=== PATIENT | female | born 1965 | race Caucasian/White ===

== ENCOUNTER 2019-03-15 13:03 | Emergency (ER) | payer OTHER ==
--- NOTE | 2019-03-15 13:10 | EDM.PDOC ---
ED HPI GENERAL MEDICAL PROBLEM - General Stated Complaint: MEDICAL ISSUES Time Seen by Provider: 03/15/19 13:05 Source of Information: Reports: Patient, Family History Limitations: Reports: Altered Mental Status - History of Present Illness INITIAL COMMENTS - FREE TEXT/NARRATIVE: 53-year-old female, with severe fibromyalgia has been "sleeping" for the past 3 days but seemed better this morning. She got up and made her own breakfast but then laid down for a nap. She was wearing her CPAP, and when she woke she seemed agitated and threw her mask off. She is confused, her awareness seems to be waxing and waning and she is dysarthric. She has not had this problem in the past. No fevers or chills, no recent illness, no nausea or vomiting. There is concern she accidently took a nighttime dose of amitriptyline this morning. Onset: Sudden (Symptoms started fairly suddenly in the last two hours) Associated Symptoms: Reports: Confusion, Weakness, Other (Significant fatigue over the past several days). Denies: Fever/Chills, Headaches, Nausea/Vomiting - Related Data Allergies Allergy/AdvReac Type Severity Reaction Status Date / Time No Known Allergies Allergy Verified 03/15/19 13:12 Home Meds: Home Meds Amitriptyline HCl 150 mg PO BEDTIME 03/15/19 [History] Amitriptyline [Elavil] 25 mg PO ASDIRECTED PRN 03/15/19 [History] Cholecalciferol (Vitamin D3) [Vitamin D] 1 tab PO DAILY 03/15/19 [History] Lisinopril 10 mg PO DAILY 03/15/19 [History] Venlafaxine HCl [Venlafaxine HCl ER] 37.5 mg PO DAILY 03/15/19 [History] ED ROS GENERAL - Review of Systems Review Of Systems: See Below Constitutional: Reports: Malaise, Weakness, Decreased Appetite. Denies: Fever, Chills HEENT: Reports: Other (Dysarthria) Respiratory: Denies: Shortness of Breath Cardiovascular: Denies: Chest Pain GI/Abdominal: Denies: Diarrhea, Nausea, Vomiting : Reports: No Symptoms Musculoskeletal: Reports: Other (Severe recent flareup of fibromyalgia) Skin: Reports: Other (Irregular erythematous macular rash on the left shoulder and a few patches on the left cheek and neck which the family had not noticed earlier) Neurological: Reports: Other (Symmetric generalized weakness, shaky and very tremulous when attempting to stand) Psychiatric: Reports: Depression, Other (History of chemical dependency treatment) ED EXAM, GENERAL - Physical Exam Exam: See Below Exam Limited By: Altered Mental Status General Appearance: Alert, Other (Acting very tired, responds appropriately to questions with slurred speech and tends to close eyes in between questioning) Eye Exam: Bilateral Eye: EOMI Throat/Mouth: Other (Lips are dry, otherwise negative) Head: Atraumatic Neck: Supple Respiratory/Chest: No Respiratory Distress, Lungs Clear Cardiovascular: Regular Rate, Rhythm GI/Abdominal: Tender (Does react with some diffuse discomfort to palpation in the abdomen, no focal tenderness) Neurological: Inattentive, Confused, Slow to Respond. No: Sensory/Motor Deficit (No asymmetric deficit) Psychiatric: Depressed Mood, Flat Affect Skin Exam: Warm, Erythema (An asymmetric macular rash on the left shoulder and a few patches on the neck and cheek left side) Course - Vital Signs Last Recorded V/S: Last Vital Signs Temp 96.0 F 03/15/19 13:10 Pulse 100 03/15/19 14:05 Resp 15 03/15/19 15:49 BP 125/84 03/15/19 15:49 Pulse Ox 97 03/15/19 14:05 - Orders/Labs/Meds Orders: Active Orders 24 hr Category Date Time Status Insert Armas Catheter [Insert Urinary Catheter] [OM.PC] Care 03/15/19 13:45 Ordered Q24H Urinary Catheter Assessment [RC] ASDIRECTED Care 03/15/19 13:33 Active Labs: Laboratory Tests 03/15/19 03/15/19 03/15/19 Range/Units 13:47 13:47 13:54 WBC 7.6 (4.5-11.0) K/uL RBC 3.66 (3.30-5.50) M/uL Hgb 11.1 L (12.0-15.0) g/dL Hct 35.6 L (36.0-48.0) % MCV 97 (80-98) fL MCH 30 (27-31) pg MCHC 31 L (32-36) % Plt Count 216 (150-400) K/uL Neut % (Auto) 68 H (36-66) % Lymph % (Auto) 18 L (24-44) % [place] % (Auto) 9 H (2-6) % Eos % (Auto) 4 (2-4) % Baso % (Auto) 0 (0-1) % Sodium (140-148) mmol/L Potassium (3.6-5.2) mmol/L Chloride (100-108) mmol/L Carbon Dioxide (21-32) mmol/L Anion Gap (5.0-14.0) mmol/L BUN (7-18) mg/dL Creatinine (0.6-1.0) mg/dL Est Cr Clr Drug Dosing mL/min Estimated GFR (MDRD) (>60) Glucose (74-106) mg/dL Calcium (8.5-10.1) mg/dL Total Bilirubin (0.2-1.0) mg/dL AST (15-37) U/L ALT (12-78) U/L Alkaline Phosphatase (46-116) U/L Total Protein (6.4-8.2) g/dL Albumin (3.4-5.0) g/dL Globulin (2.3-3.5) g/dL Albumin/Globulin Ratio (1.2-2.2) Urine Color Yellow Urine Appearance Clear Urine pH 5.0 (4.5-8.0) Ur Specific [place] 1.015 (1.008-1.030) Urine Protein Negative (NEGATIVE) mg/dL Urine Glucose (UA) Normal (NEGATIVE) mg/dL Urine Ketones Negative (NEGATIVE) mg/dL Urine Occult Blood Negative (NEGATIVE) Urine Nitrite Negative (NEGATIVE) Urine Bilirubin Negative (NEGATIVE) Urine Urobilinogen Normal (NORMAL) mg/dL Ur Leukocyte Esterase Negative (NEGATIVE) Urine RBC Not seen (0-5) Urine WBC Not seen (0-5) Ur Epithelial Cells Not seen Amorphous Sediment Not seen Urine Bacteria Not seen Urine Mucus Not seen CSF Tube Number CSF Volume mls CSF Appearance (CLEAR) CSF Color (COLORLESS) CSF WBC (0-5) /ul CSF RBC (0-0) /ul CSF Mononuclear Cells (54-100) % CSF Polymorphonuclear (0-7) % CSF Glucose (40-70) mg/dL CSF Total Protein (15-45) mg/dL Urine Opiates Screen Negative (NEGATIVE) Ur Oxycodone Screen Negative (NEGATIVE) Urine Methadone Screen Negative (NEGATIVE) Ur Propoxyphene Screen Negative (NEGATIVE) Ur Barbiturates Screen Negative (NEGATIVE) Ur Tricyclics Screen Presumptive positive H (NEGATIVE) Ur Phencyclidine Scrn Negative (NEGATIVE) Ur Amphetamine Screen Negative (NEGATIVE) U Methamphetamines Scrn Negative (NEGATIVE) Urine MDMA Screen Negative (NEGATIVE) U Benzodiazepines Scrn Negative (NEGATIVE) U Cocaine Metab Screen Negative (NEGATIVE) U Marijuana (THC) Screen Negative (NEGATIVE) Ethyl Alcohol mg/dL 03/15/19 03/15/19 03/15/19 Range/Units 13:54 13:55 14:33 WBC (4.5-11.0) K/uL RBC (3.30-5.50) M/uL Hgb (12.0-15.0) g/dL Hct (36.0-48.0) % MCV (80-98) fL MCH (27-31) pg MCHC (32-36) % Plt Count (150-400) K/uL Neut % (Auto) (36-66) % Lymph % (Auto) (24-44) % [place] % (Auto) (2-6) % Eos % (Auto) (2-4) % Baso % (Auto) (0-1) % Sodium 141 (140-148) mmol/L Potassium 4.9 (3.6-5.2) mmol/L Chloride 106 (100-108) mmol/L Carbon Dioxide 27 (21-32) mmol/L Anion Gap 7.9 (5.0-14.0) mmol/L BUN 21 H (7-18) mg/dL Creatinine 1.3 H (0.6-1.0) mg/dL Est Cr Clr Drug Dosing 39.58 mL/min Estimated GFR (MDRD) 43 L (>60) Glucose 89 (74-106) mg/dL Calcium 8.3 L (8.5-10.1) mg/dL Total Bilirubin 0.1 L (0.2-1.0) mg/dL AST 25 (15-37) U/L ALT 51 (12-78) U/L Alkaline Phosphatase 95 (46-116) U/L Total Protein 6.5 (6.4-8.2) g/dL Albumin 3.2 L (3.4-5.0) g/dL Globulin 3.3 (2.3-3.5) g/dL Albumin/Globulin Ratio 1.0 L (1.2-2.2) Urine Color Urine Appearance Urine pH (4.5-8.0) Ur Specific [place] (1.008-1.030) Urine Protein (NEGATIVE) mg/dL Urine Glucose (UA) (NEGATIVE) mg/dL Urine Ketones (NEGATIVE) mg/dL Urine Occult Blood (NEGATIVE) Urine Nitrite (NEGATIVE) Urine Bilirubin (NEGATIVE) Urine Urobilinogen (NORMAL) mg/dL Ur Leukocyte Esterase (NEGATIVE) Urine RBC (0-5) Urine WBC (0-5) Ur Epithelial Cells Amorphous Sediment Urine Bacteria Urine Mucus CSF Tube Number 3 CSF Volume 1 mls CSF Appearance Clear (CLEAR) CSF Color Colorless (COLORLESS) CSF WBC 2 (0-5) /ul CSF RBC 0 (0-0) /ul CSF Mononuclear Cells 90 (54-100) % CSF Polymorphonuclear 10 H (0-7) % CSF Glucose (40-70) mg/dL CSF Total Protein (15-45) mg/dL Urine Opiates Screen (NEGATIVE) Ur Oxycodone Screen (NEGATIVE) Urine Methadone Screen (NEGATIVE) Ur Propoxyphene Screen (NEGATIVE) Ur Barbiturates Screen (NEGATIVE) Ur Tricyclics Screen (NEGATIVE) Ur Phencyclidine Scrn (NEGATIVE) Ur Amphetamine Screen (NEGATIVE) U Methamphetamines Scrn (NEGATIVE) Urine MDMA Screen (NEGATIVE) U Benzodiazepines Scrn (NEGATIVE) U Cocaine Metab Screen (NEGATIVE) U Marijuana (THC) Screen (NEGATIVE) Ethyl Alcohol < 3 mg/dL 03/15/19 Range/Units 14:33 WBC (4.5-11.0) K/uL RBC (3.30-5.50) M/uL Hgb (12.0-15.0) g/dL Hct (36.0-48.0) % MCV (80-98) fL MCH (27-31) pg MCHC (32-36) % Plt Count (150-400) K/uL Neut % (Auto) (36-66) % Lymph % (Auto) (24-44) % [place] % (Auto) (2-6) % Eos % (Auto) (2-4) % Baso % (Auto) (0-1) % Sodium (140-148) mmol/L Potassium (3.6-5.2) mmol/L Chloride (100-108) mmol/L Carbon Dioxide (21-32) mmol/L Anion Gap (5.0-14.0) mmol/L BUN (7-18) mg/dL Creatinine (0.6-1.0) mg/dL Est Cr Clr Drug Dosing mL/min Estimated GFR (MDRD) (>60) Glucose (74-106) mg/dL Calcium (8.5-10.1) mg/dL Total Bilirubin (0.2-1.0) mg/dL AST (15-37) U/L ALT (12-78) U/L Alkaline Phosphatase (46-116) U/L Total Protein (6.4-8.2) g/dL Albumin (3.4-5.0) g/dL Globulin (2.3-3.5) g/dL Albumin/Globulin Ratio (1.2-2.2) Urine Color Urine Appearance Urine pH (4.5-8.0) Ur Specific [place] (1.008-1.030) Urine Protein (NEGATIVE) mg/dL Urine Glucose (UA) (NEGATIVE) mg/dL Urine Ketones (NEGATIVE) mg/dL Urine Occult Blood (NEGATIVE) Urine Nitrite (NEGATIVE) Urine Bilirubin (NEGATIVE) Urine Urobilinogen (NORMAL) mg/dL Ur Leukocyte Esterase (NEGATIVE) Urine RBC (0-5) Urine WBC (0-5) Ur Epithelial Cells Amorphous Sediment Urine Bacteria Urine Mucus CSF Tube Number CSF Volume mls CSF Appearance (CLEAR) CSF Color (COLORLESS) CSF WBC (0-5) /ul CSF RBC (0-0) /ul CSF Mononuclear Cells (54-100) % CSF Polymorphonuclear (0-7) % CSF Glucose 52 (40-70) mg/dL CSF Total Protein 31.7 (15-45) mg/dL Urine Opiates Screen (NEGATIVE) Ur Oxycodone Screen (NEGATIVE) Urine Methadone Screen (NEGATIVE) Ur Propoxyphene Screen (NEGATIVE) Ur Barbiturates Screen (NEGATIVE) Ur Tricyclics Screen (NEGATIVE) Ur Phencyclidine Scrn (NEGATIVE) Ur Amphetamine Screen (NEGATIVE) U Methamphetamines Scrn (NEGATIVE) Urine MDMA Screen (NEGATIVE) U Benzodiazepines Scrn (NEGATIVE) U Cocaine Metab Screen (NEGATIVE) U Marijuana (THC) Screen (NEGATIVE) Ethyl Alcohol mg/dL Meds: Medications Discontinued Medications Generic Name Dose Route Start Last Admin Trade Name Freq PRN Reason Stop Dose Admin Sodium Chloride 1,000 mls @ 1,000 mls/hr 03/15/19 14:30 03/15/19 14:35 Normal Saline IV 1,000 mls/hr ASDIRECTED [facility] Administration - Re-Assessments/Exams Free Text/Narrative Re-Assessment/Exam: 03/15/19 13:[address] was done which appears normal. Official reading is pending. CBC, CMP, EtOH and CRP were obtained and a Armas catheter was placed for urine sample. UA and urine drug screen will be obtained. Anesthesia was consult at for a lumbar puncture to assess spinal fluid. Normal saline at 200 mL an hour was started. 03/15/19 14:50 White count is normal, hemoglobin 11.1. EtOH is 0, CMP reveals evidence of dehydration with increased BUN and creatinine, decreased GFR. Patient was bolused with 1 L of normal saline, the lumbar puncture procedure went well with an opening pressure of 14 and very clear spinal fluid. Protein, glucose, and Gram stain were obtained. Patient continued to improve and become more alert. Urine drug screen was positive only for tricyclics which is prescribed to her. 03/15/19 16:08 Spinal fluid tests were reassuring, normal. Armas was removed. Patient and family are discussing whether she needs a night of observation or they are comfortable aking her home. 03/15/19 16:20 Patient was a little weak but was able to ambulate around the emergency room with little assistance. Family is content to take her home and return if problems develop. Departure - Departure Time of Disposition: 16:38 Disposition: Home, Self-Care 01 Clinical Impression: Weakness, Dehydration Mental status alteration Qualifiers: Altered mental status type: somnolence Qualified Code(s): R40.0 - Somnolence - Discharge Information Instructions: Altered Mental Status Referrals: PCP,None [Primary Care Provider] - Forms: ED Department Discharge Care Plan Goals: Stay hydrated, increase activity as tolerated and resume your regular medication schedule. Return if symptoms recur and are persistent or you develop other concerns. - My Orders Last 24 Hours: My Active Orders 03/15/19 13:33 Urinary Catheter Assessment [RC] ASDIRECTED 03/15/19 13:45 Insert Armas Catheter [Insert Urinary Catheter] [OM.PC] Q24H - Assessment/Plan Last 24 Hours: My Active Orders 03/15/19 13:33 Urinary Catheter Assessment [RC] ASDIRECTED 03/15/19 13:45 Insert Armas Catheter [Insert Urinary Catheter] [OM.PC] Q24H
--- NOTE | 2019-03-15 13:59 | CRLCT ---
INDICATION: Confusion, weakness TECHNIQUE: CT Head without contrast. COMPARISON: None. FINDINGS: CSF spaces: Within normal limits for age. Brain parenchyma: The kaba-white differentiation is normal. No sign of mass, hemorrhage, or midline shift. Skull base and calvarium: The visualized paranasal sinuses and mastoid air cells are clear. The visualized orbits are grossly unremarkable. No skull fractures. IMPRESSION: Unremarkable noncontrast head CT. Please note that all CT scans at this facility use dose modulation, iterative reconstruction, and/or weight-based dosing when appropriate to reduce radiation dose to as low as reasonably achievable. Dictated by: Jarett Sanchez MD @ 03/15/2019 13:56:45 (Electronically Signed)
[2019-03-15] MEDS ORDERED: Sodium Chloride 0.9% 1,000 ML IV SCH ×2 (14:15→14:30)
--- NOTE | 2019-03-15 14:48 | ANES ---
DATE OF SERVICE: 03/15/2019 INDICATION: Ms. Dimas is in the emergency room and I was called by Dr. Jimenez to evaluate her for a spinal tap. She gets some pain and mental changes that warrant ruling out meningitis. The risks and benefits were explained to the patient's significant other as well as the patient. They wished to proceed. TECHNIQUE: She was placed in a left lateral decubitus position. Her back was prepped x3 with Betadine, 1% lidocaine skin local was used. A 25-gauge Pencan needle was used to obtain the cerebrospinal fluid. There was positive CSF, negative blood, and negative paresthesias noted. The pressure was at 14 cm of water. Then, 4 tubes were subsequently obtained with cerebrospinal fluid and marked and labeled. The fluid was nice and clear. Dr. Jimenez was notified. Minh Heart CRNA /[id number]
== END 2019-03-15 16:38 | disposition home or self-care (01) ==
LOC: JP.ED 13:03
DX: R40.0 Somnolence (principal); E86.0 Dehydration; R23.8 Other skin changes; Z79.899 Other long term (current) drug therapy
CPT/HCPCS: 36415; 51702; 62270; 70450; 80053; 80305; 81001; 82945; 84157; 85025; 89050; 99285; G0480; J7030